=== PATIENT | female | born 1990 | race Caucasian/White ===

== ENCOUNTER 2021-01-28 20:07 | Emergency (ER) | payer OTHER ==
[2021-01-28 21:29] LABS: HEMOGLOBIN 13.5 gm/dl (12.3-15.3); RED BLOOD COUNT 4.18 M/UL (4.00-5.10); WHITE BLOOD COUNT 12.6 K/UL (4.5-11.0)
[2021-01-28 21:54] LABS: BUN/CREATININE RATIO 12 (0-10)
[2021-01-28] MEDS ORDERED: CYCLOBENZAPRINE10 MG PO (22:39)
[2021-01-28] MEDS ORDERED: CELEBREX100 MG PO (22:39)
[2021-01-29] MEDS ORDERED: HYDROCODON-ACE1 EAC4 PO ×2 (05:40→05:41)
== END 2021-01-28 22:58 | disposition home or self-care (01) ==
LOC: ER1 20:07
PROVIDERS: Physician Assistant Medical
DX: R07.9 Chest pain, unspecified (principal); E11.9 Type 2 diabetes mellitus without complications; F17.200 Nicotine dependence, unspecified, uncomplicated; Z90.49 Acquired absence of other specified parts of digestive tract
CPT/HCPCS: 71111; 80053; 82550; 82553; 83874; 84439; 84443; 84484; 85025; 85379; 93005; 99285

== ENCOUNTER 2021-02-01 18:57 | Emergency (ER) | payer OTHER ==
[~2021-02-01 18:57] MED LIST: CELEBREX100 MG PO; CYCLOBENZAPRINE10 MG PO; HYDROCODON-ACE1 EAC4 PO
== END 2021-02-01 19:55 | disposition left against medical advice (07) ==
LOC: ER1 18:57
DX: Z53.21 Procedure and treatment not carried out due to patient leaving prior to being seen by health care provider (principal)